=== PATIENT | female | born 1935 | race Caucasian/White ===

== ENCOUNTER 2020-12-09 10:22 | Observation (INO) ==
--- NOTE | 2020-12-09 13:34 | DR.H&P ---
H&P - History & Physical for Day of: H&P Date: 12/09/20 - Chief Complaint Chief Complaint: Nausea and abdominal pain - History of Present Illness History of Present Illness: The patient is an 85-year-old white female who presents with her secondary to a 3 week history of nausea and abdominal pain. States that she is having pains in the right mid abdomen. States that the pain is constant. Patient Denies changes in bowel habits. Denies any mucus in stool or diarrhea constipation. Patient denies vomiting. States that food does not help the nausea. States that she has been eating bland food. Patient is noted Have a 5 pound weight loss since last visit. Patient does have 3-4+ edema to bilateral lower extremities. States that she is still voiding without difficulty. Does not have history of peripheral edema. Patient denies any chest pain or palpitations. Does admit to feeling bad. No other complaints voiced - Past Medical History Past Medical History: Hypertension - Past Surgical History Surgical History: Cholecystectomy - Social History Does patient currently use any type of tobacco product: No Have you used tobacco products in the last 12 months: No Type of Tobacco Use: None Does any household member use tobacco: No Alcohol Use: None Drug Use: Prescription Drugs Risks, benefits, and alternatives of opioids discussed: No Prescription drug monitoring program results: PDMP reviewed and no concerns identified - Medications Home Medications: MS No Known Drug Allergy [No Known Drug Allergy] Allergy (Verified 05/13/16 11:07) - Review of Systems Constitutional: See HPI, Weakness, Malaise Eyes: No Symptoms Reported ENT: No Symptoms Reported Respiratory: No Symptoms Reported Cardiovascular: No Symptoms Reported Gastrointestinal: Nausea, Abdominal Pain Genitourinary: No Symptoms Reported Musculoskeletal: No Symptoms Reported Skin: No Symptoms Reported Neurological: Confusion (forgetfulness at times) - Physical Exam Vital Signs: Blood Pressure 143/83 Oriented: Normal Eyes: Normal Ear: Normal Nose: Normal Throat: Normal Respiratory: Clear Throughout Cardiovascular: Normal : Normal Auscultation: Bowel Sounds: Normal Palpation: Normal Tenderness: Periumbilical (right mid abd) Skin: Decreased Turgur Musculoskeletal: Normal Psychiatric: Normal Mood Description: Calm Affect: Normal Speech Pattern: Clear - Assessment/Plan (1) Abdominal pain Status: Acute Plan: Labs, CT Abd (2) Nausea Status: Acute Plan: Anti-emetics (3) Dehydration Status: Acute Plan: Labs, IV Hydration (4) Peripheral edema Status: Acute Plan: ECHO (5) Forgetfulness Status: Acute Plan: US Carotid - Allergies Allergies/Adverse Reactions: Allergies Allergy/AdvReac Type Severity Reaction Status Date / Time MS No Known Drug Allergy Allergy Verified 05/13/16 11:07 [No Known Drug Allergy]
[2020-12-09] MEDS ORDERED: PROTONIX INJ 40 MG VIAL IVP SCH (13:41)
[2020-12-09] MEDS ORDERED: ZOFRAN INJ 4 MG VIAL IVP PRN (13:41)
[2020-12-09 14:46] LABS: BASOPHILS % (AUTO) 0.7 % (0.2-1.0); EOSINOPHILS % (AUTO) 1.2 % (0.9-2.9); HEMATOCRIT 36.5 % (36.0-47.0); HEMOGLOBIN 12.5 g/dL (12.0-16.0); LYMPHOCYTES # (AUTO) 0.8 X10^3/uL (1.3-2.9); LYMPHOCYTES % (AUTO) 22.1 % (21.0-51.0); MEAN CORPUSCULAR HEMOGLOBIN 32.7 pg (27.0-34.0); MEAN CORPUSCULAR HGB CONC 34.2 g/dL (33.0-35.0); MEAN CORPUSCULAR VOLUME 95.7 fL (80.0-100.0); MEAN PLATELET VOLUME 8.3 fL (7.4-11.0); MONOCYTES # (AUTO) 0.3 x10^3/uL (0.3-0.8); MONOCYTES % (AUTO) 9.2 % (0.0-13.0); NEUTROPHILS # (AUTO) 2.3 x10^3/uL (2.2-4.8); NEUTROPHILS % (AUTO) 66.8 % (42.0-75.0); PLATELET COUNT 207 X10^3/uL (150.0-450.0); RED BLOOD COUNT 3.81 X10^6/uL (3.5-5.4); RED CELL DISTRIBUTION WIDTH 13.6 % (11.6-16.5); WHITE BLOOD COUNT 3.5 X10^3/uL (3.6-10.0)
[2020-12-09 14:56] LABS: ALANINE AMINOTRANSFERASE 33 Units/L (12-78); ALBUMIN 2.9 g/dL (3.4-5.0); ALKALINE PHOSPHATASE 91 Units/L (46-116); AMYLASE 44 Units/L (25-115); ASPARTATE AMINO TRANSFERASE 21 Units/L (15-37); BLOOD UREA NITROGEN 12 mg/dL (7-18); CALCIUM 8.9 mg/dL (8.5-10.1); CARBON DIOXIDE 31.9 mmol/L (21-32); CHLORIDE 95 mmol/L (98-107); COR CA(FOR HYPOALB) 9.8 mg/dL (8.5-10.1); CREATININE 0.71 mg/dL (0.55-1.02); LIPASE 135 Units/L (73-393); SODIUM 133 mmol/L (136-145); TOTAL PROTEIN 5.5 g/dL (6.4-8.2); eGFR NON BLACK RACES > 60 (>60)
[2020-12-09 14:59] LABS: LACTIC ACID 0.9 mmol/L (0.4-2.0)
[2020-12-09] MEDS ORDERED: PEPCID TAB 20 MG PO SCH (15:00)
[2020-12-09 15:25] VITALS: BMI 20.3
[2020-12-09] MEDS ORDERED: LASIX IVP ONE (15:36)
--- NOTE | 2020-12-09 15:50 | RAD ---
HISTORYLOWER EXT EDEMA, WEIGHT LOSSSTUDYCHEST, 1 VIEWCOMPARISONNoneFINDINGSThe cardiomediastinal silhouette is prominent. Small bilateral pleural effusions with adjacent dependent atelectasis in the lung bases. Left apical calcifications. The bony thorax appears intact.IMPRESSIONSmall bilateral pleural effusions.Electronically signed by: MIAH REDDY (Dec 09, 2020 15:47:34)
[2020-12-09 16:03] LABS: BILIRUBIN,URINE NEGATIVE (NEGATIVE); BLOOD/HEMOGLOBIN,URINE NEGATIVE (NEGATIVE); GLUCOSE, URINE NEGATIVE (NEGATIVE); KETONES,URINE NEGATIVE (NEGATIVE); LEUKOCYTE ESTERASE ,URINE NEGATIVE (NEGATIVE); NITRITES,URINE NEGATIVE (NEGATIVE); PROTEIN,URINE NEGATIVE (NEGATIVE); UROBILINOGEN,URINE NORMAL (NORMAL)
[2020-12-09 16:08] LABS: APPEARANCE,URINE CLEAR (CLEAR); COLOR,URINE YELLOW (YELLOW)
--- NOTE | 2020-12-09 16:11 | VAS ---
HISTORYSOB, PITTING EDEMASTUDYLOWER EXT VENOUS, BILATERALCOMPARISONNo relevant prior studies available.[id number] grayscale and color Doppler images of the lower extremities.FINDINGSRight lower extremity:Common femoral, femoral and popliteal veins demonstrate normal compressibility, color Doppler flow, waveforms and augmentation with no filling defects.Normal color Doppler flow in the deep veneous structures of the calf.Soft tissues: UnremarkableLeft lower extremity:Common femoral, femoral and popliteal veins demonstrate normal compressibility, color Doppler flow, waveforms and augmentation with no filling defects.Normal color Doppler flow in the deep veneous structures of the calf.Soft tissues:UnremarkableIMPRESSIONNo evidence of deep venous thrombus in either lower extremity.Electronically signed by: Trent Fong (Dec 09, 2020 16:09:39)
[2020-12-09] MEDS ORDERED: NS 100 ML IV 100 ML IV ONE (16:13)
[2020-12-09] MEDS ORDERED: LASIX ONE (16:20)
--- NOTE | 2020-12-09 16:30 | VAS ---
HISTORYFORGETFULLNESS hypertension.STUDYCAROTID USCOMPARISONNoneTECHNIQUEForty-three images made by the document analyst. Katz scale and color flow Doppler images of the right carotid arterial system, left carotid arterial system, and vertebral arterial system were obtained.FINDINGSVelocities are measured in centimeters per second. Recommendations are based on peer reviewed published data from Society of Radiologists in Ultrasound Consensus Conference, 2003.Right side: Right common carotid and internal carotid arteries are widely patent. Wall thickening seen in common carotid artery. Hard plaque disease in the carotid bulb seen is wall thickening, echogenicity, shadowing compatible with calcification.Peak systolic velocity in the right common carotid artery measured 87. Peak systolic velocity in the right internal carotid artery measured 86. This yields a peak systolic velocity ratio of 0.9. The peak end diastolic velocity measured 24. This yields a stenosis of less than 50 percent.Right external carotid artery was patent. Flow in the right vertebral artery was antegrade.Left side: Left common carotid and internal carotid arteries are widely patent. Hard plaque seen in the left carotid bulb with focal wall thickening, echogenicity and shadowing compatible with calcification.Peak systolic velocity in the left common carotid artery measured [85]. Peak systolic velocity in the left internal carotid artery measured [76]. This yields a peak systolic velocity ratio of [0.9]. The peak end diastolic velocity measured [17]. [This yields a stenosis of less than 50 percent.]Left external carotid artery was patent. Flow in the left vertebral artery was antegrade.IMPRESSION1. Bilateral calcified carotid bulb plaque disease2. Less than 50% stenosis in right ICA and left ICAElectronically signed by: Rafy Barboza (Dec 09, 2020 16:29:02)
[2020-12-09 16:58] LABS: ABG ALLEN TEST POS; ABG BASE EXCESS 7.6 mmol/L (-2.0-2.0)
--- NOTE | 2020-12-09 17:45 | CT ---
HISTORYSOB hypertension.STUDYCTA CHESTCOMPARISONChest radiograph 12/09/2020TECHNIQUEMultiple CT axial images of the chest were obtained with IV contrast. Coronal and sagittal images were reconstructed. 3D reconstructions using axial MIPS imaging was performed and reviewed. Dose reduction techniques included Automated Exposure Control (AEC) and adjustment of mA and kV.Stenoses are measured using NASCET criteria.FINDINGSPulmonary arteries are identified to segmental branches. There are no pulmonary emboli.Cardiomegaly is present. Atherosclerotic calcifications are present in the coronary arteries. The pulmonary artery and aorta have a normal caliber. No mediastinal mass or significant lymphadenopathy.The patient has generalized edema. This is seen is increased density in the subcutaneous fat, the intrathoracic fat, and the upper abdominal fat. Moderate bilateral pleural effusions are present and may be part of the same process.Passive/dependent atelectasis noted posteriorly and associated with the pleural effusions. This involves all the basilar segments of the right lower lobe and left lower lobe and most of the right middle lobe. Pneumonia is less likely.Limited views of the upper abdomen show no significant abnormality. No significant bone abnormality.IMPRESSION1. No pulmonary emboli2. Moderate bilateral effusions3. Probable compressive atelectasis, less likely pneumonia4. Cardiomegaly with CADElectronically signed by: Rafy Barboza (Dec 09, 2020 17:42:59)
--- NOTE | 2020-12-09 17:52 | CT ---
HISTORYPAIN RLQSTUDYABDOMEN/PELVIS WITH CONCOMPARISONNoneTECHNIQUEAxial CT images of the abdomen and pelvis were obtained after the administration of IV contrast and reformatted into coronal and sagittal planes for further evaluation. Enteric contrast was also administered.Radiation dose: 1034.60 mGy-cm total DLPFINDINGSPartially imaged large right and moderate left pleural effusions with adjacent atelectasis.Stomach appears normal.Sub cm cyst in the left hepatic lobe.Otherwise, unremarkable appearance of the liver parenchyma.Spleen, pancreas and adrenal glands are unremarkable.Atherosclerotic changes to the abdominal aorta and iliac vessels without aneurysm.Gallbladder appears normal with no biliary dilatation.Homogeneous enhancement of the kidneys without hydronephrosis or hydroureter.Unremarkable appearance of the urinary bladder.Imaged reproductive structures are unremarkable.Unremarkable appearance of the large and small bowel.No evidence of acute appendicitis.No pneumoperitoneum.No significant fluid collection.No adenopathy.No acute osseous abnormality.Multilevel mild degenerative disc disease without vertebral body height loss.IMPRESSION1. No acute intra-abdominal abnormality detected.2. Large right and moderate left pleural effusions with adjacent atelectasis may represent the sequela of cardiogenic edema.Electronically signed by: Trent Fong (Dec 09, 2020 17:50:42)
[2020-12-10] MEDS: PEPCID 20 MG IV PREMIX* 20 MG/50 ML BAG IV SCH (09:25)
[2020-12-10] MEDS: CARDIZEM CD 240 MG 24-HR PO SCH (09:25)
[2020-12-10] MEDS: LOVENOX INJ 40 MG SYR SC SCH (10:13)
[2020-12-10 10:45] LABS: EOSINOPHILS % (AUTO) 1.3 % (0.9-2.9); HEMATOCRIT 35.5 % (36.0-47.0); HEMOGLOBIN 11.7 g/dL (12.0-16.0); LYMPHOCYTES # (AUTO) 0.6 X10^3/uL (1.3-2.9); LYMPHOCYTES % (AUTO) 18.7 % (21.0-51.0); MEAN CORPUSCULAR HEMOGLOBIN 31.9 pg (27.0-34.0); MEAN CORPUSCULAR VOLUME 96.8 fL (80.0-100.0); MEAN PLATELET VOLUME 8.6 fL (7.4-11.0); MONOCYTES # (AUTO) 0.3 x10^3/uL (0.3-0.8); MONOCYTES % (AUTO) 8.6 % (0.0-13.0); NEUTROPHILS # (AUTO) 2.4 x10^3/uL (2.2-4.8); NEUTROPHILS % (AUTO) 70.4 % (42.0-75.0); PLATELET COUNT 216 X10^3/uL (150.0-450.0); RED BLOOD COUNT 3.67 X10^6/uL (3.5-5.4); RED CELL DISTRIBUTION WIDTH 13.8 % (11.6-16.5); WHITE BLOOD COUNT 3.4 X10^3/uL (3.6-10.0)
[2020-12-10 10:46] LABS: ALANINE AMINOTRANSFERASE 29 Units/L (12-78); ALBUMIN 2.5 g/dL (3.4-5.0); ALKALINE PHOSPHATASE 80 Units/L (46-116); ASPARTATE AMINO TRANSFERASE 21 Units/L (15-37); BLOOD UREA NITROGEN 9 mg/dL (7-18); CALCIUM 8.1 mg/dL (8.5-10.1); CARBON DIOXIDE 35.9 mmol/L (21-32); CHLORIDE 97 mmol/L (98-107); COR CA(FOR HYPOALB) 9.3 mg/dL (8.5-10.1); COR NA(FOR HYPERGLY) 135 mmol/L (136-145); CREATININE 0.86 mg/dL (0.55-1.02); SODIUM 134 mmol/L (136-145); TOTAL PROTEIN 4.9 g/dL (6.4-8.2); eGFR NON BLACK RACES > 60 (>60)
[2020-12-10] MEDS ORDERED: POTASSIUM CHL 60 MEQ/NS 0.45% 500 ML IV PRN (12:03)
[2020-12-10] MEDS ORDERED: KLOR-CON PO PRN (12:03)
[2020-12-10] MEDS ORDERED: K-RIDER 10 MEQ/NS 100 ML 10 MEQ/100 ML BAG IV PRN (12:03)
[2020-12-10] MEDS ORDERED: POTASSIUM CHLORIDE LIQ 20 MEQ UDC PO PRN (12:03)
[2020-12-10] MEDS ORDERED: MICRO K EXTEN CAP 10 MEQ PO PRN (12:03)
[2020-12-10] MEDS ORDERED: POTASSIUM CHL 40 MEQ/NS 0.45% 500 ML IV PRN (12:03)
[2020-12-10] MEDS ORDERED: NS 250 ML IV 250 ML IV ONE (12:44)
[2020-12-10 13:18] LABS: ABG BASE EXCESS 11.1 mmol/L (-2.0-2.0)
[2020-12-10 13:19] LABS: ABG ALLEN TEST POS; ABG HCO3 36.4 mmol/L (22-26)
[2020-12-10] MEDS: K-DUR TAB 20 MEQ PO PRN (13:27)
[2020-12-10] MEDS: MAGNESIUM SULFATE 1 GRAM/100 mL PREMIX 1 GM/100 ML BAG IV PRN ×2 (13:28→15:17)
[2020-12-10] MEDS: K-DUR TAB 20 MEQ PO SCH ×2 (14:56→20:48)
[2020-12-10] MEDS: LASIX IVP SCH ×2 (15:17→16:39)
[2020-12-10 18:58] LABS: CREATINE KINASE MB 1.6 ng/mL (0-4.0); TROPONIN I 0.14 ng/mL (0-1.5)
[2020-12-10] MEDS: FOSINOPRIL PO SCH (19:31)
[2020-12-11 05:41] LABS: BASOPHILS # (AUTO) 0.1 X10^3/uL (0.0-0.1); BASOPHILS % (AUTO) 1.3 % (0.2-1.0); EOSINOPHILS # (AUTO) 0.1 x10^3/uL (0.0-0.2); EOSINOPHILS % (AUTO) 1.6 % (0.9-2.9); HEMATOCRIT 35.9 % (36.0-47.0); HEMOGLOBIN 11.9 g/dL (12.0-16.0); LYMPHOCYTES % (AUTO) 21.2 % (21.0-51.0); MEAN CORPUSCULAR HGB CONC 33.2 g/dL (33.0-35.0); MEAN CORPUSCULAR VOLUME 96.4 fL (80.0-100.0); MEAN PLATELET VOLUME 8.2 fL (7.4-11.0); MONOCYTES # (AUTO) 0.4 x10^3/uL (0.3-0.8); MONOCYTES % (AUTO) 8.7 % (0.0-13.0); NEUTROPHILS # (AUTO) 3.2 x10^3/uL (2.2-4.8); NEUTROPHILS % (AUTO) 67.2 % (42.0-75.0); PLATELET COUNT 200 X10^3/uL (150.0-450.0); RED BLOOD COUNT 3.72 X10^6/uL (3.5-5.4); RED CELL DISTRIBUTION WIDTH 13.6 % (11.6-16.5); WHITE BLOOD COUNT 4.8 X10^3/uL (3.6-10.0)
--- NOTE | 2020-12-11 05:56 | RAD ---
PROCEDURE: Chest X-ray 1 View .HISTORY: Short of breath.TECHNIQUE: AP view .COMPARISON: 12/09/2020.TECHNICAL QUALITY: Satisfactory .FINDINGS:Normal cardio mediastinal silhouette.Normal central vascularity.Some improvement in the pleural fluid at the lung bases. Continued atelectasis both lung bases. Hyperlucency upper lung chance related to emphysematous changes. No pneumothorax.IMPRESSION:1. Improving pleural fluid at the lung bases with some atelectasis.2. COPD.Electronically signed by: Jr Reinoso (Dec 11, 2020 05:54:16)
[2020-12-11 06:02] LABS: ALANINE AMINOTRANSFERASE 25 Units/L (12-78); ALBUMIN 2.5 g/dL (3.4-5.0); ALKALINE PHOSPHATASE 83 Units/L (46-116); ASPARTATE AMINO TRANSFERASE 17 Units/L (15-37); BLOOD UREA NITROGEN 11 mg/dL (7-18); CALCIUM 8.2 mg/dL (8.5-10.1); CARBON DIOXIDE 34.4 mmol/L (21-32); CHLORIDE 97 mmol/L (98-107); CHOL/HDL RATIO 2.7 (0.0-5.0); CHOLESTEROL 168 mg/dL (0-200); CKMB % 6.1 % (<4); COR CA(FOR HYPOALB) 9.4 mg/dL (8.5-10.1); CREATINE KINASE 28 Units/L (26-192); CREATINE KINASE MB 1.7 ng/mL (0-4.0); CREATININE 0.73 mg/dL (0.55-1.02); HDL CHOLESTEROL 62 mg/dL (40-60); MAGNESIUM 1.8 mg/dL (1.7-2.9); SODIUM 133 mmol/L (136-145); TRIGLYCERIDES 48 mg/dL (0-150); TROPONIN I 0.12 ng/mL (0-1.5); eGFR NON BLACK RACES > 60 (>60)
[2020-12-11] MEDS: MAGNESIUM SULFATE 1 GRAM/100 mL PREMIX 1 GM/100 ML BAG IV PRN (08:59)
[2020-12-11] MEDS ORDERED: LASIX IVP SCH (09:00)
[2020-12-11] MEDS: LOVENOX INJ 40 MG SYR SC SCH (09:01)
[2020-12-11] MEDS: K-DUR TAB 20 MEQ PO SCH (09:03)
[2020-12-11] MEDS: K-DUR TAB 20 MEQ PO PRN (09:04)
[2020-12-11] MEDS: CARDIZEM CD 240 MG 24-HR PO SCH (09:05)
[2020-12-11] MEDS: PEPCID 20 MG IV PREMIX* 20 MG/50 ML BAG IV SCH (09:06)
[2020-12-11] MEDS: FOSINOPRIL PO SCH (09:14)
[2020-12-11 10:50] LABS: CKMB % 5.7 % (<4); CREATINE KINASE MB 1.7 ng/mL (0-4.0); TROPONIN I 0.11 ng/mL (0-1.5)
[2020-12-11 12:23] VITALS: BP 138/60
[2020-12-11] MEDS ORDERED: NYSTATIN CREAM TOP SCH (14:00)
[2020-12-11 14:27] LABS: CREATINE KINASE MB 1.6 ng/mL (0-4.0); TROPONIN I 0.11 ng/mL (0-1.5)
== END 2020-12-11 15:00 | disposition home health service (06) ==
LOC: MED/SURG
PROVIDERS: ADMIT Internal Medicine; ATTEND Internal Medicine
DX: Z66 Do not resuscitate; I77.1 Stricture of artery; E86.0 Dehydration; I11.0 Hypertensive heart disease with heart failure; J90 Pleural effusion, not elsewhere classified; I50.9 Heart failure, unspecified; R10.84 Generalized abdominal pain; R26.89 Other abnormalities of gait and mobility; R63.4 Abnormal weight loss; Z20.822 Contact with and (suspected) exposure to COVID-19; L89.150 Pressure ulcer of sacral region, unstageable; E87.1 Hypo-osmolality and hyponatremia; R60.0 Localized edema; R53.1 Weakness; J44.9 Chronic obstructive pulmonary disease, unspecified